=== PATIENT | male | born 1990 | race Caucasian/White ===

== ENCOUNTER 2025-03-01 09:23 | Emergency (ER) | payer OTHER, SELFPAY ==
[2025-03-01 09:36] VITALS: BP 129/82; PULSE 105; RESP 20; TEMP 37.2; O2SAT 99
--- NOTE | 2025-03-01 09:51 | ED.EAR ---
HPI - Ear Problem General Chief complaint: Ear Stated complaint: right ear patient presents to the [facility] accompanied by spouse with complaints of significant right ear pain with bloody drainage that began yesterday. Patient noted some minimal ear pain with nasal congestion and sinus pain that began about 4 days ago. Patient reports using some [id number] lidocaine ear drops yesterday without relief of symptoms. No known sick contacts. As a child had trouble with ears but no problems as an adult. Denies fever, chills, body aches, dizziness, cough, shortness of breath, nausea, vomiting, diarrhea. Related Data Allergies Allergy/AdvReac Type Severity Reaction Status Date / Time No Known Allergies Allergy Verified 03/01/25 09:45 Review of Systems Constitutional: Constitutional: Reports as per HPI, Denies chills, Reports fatigue, Denies fever(s) and Denies weakness Eyes: Eyes: Reports no additional eye complaints ENT: Reports as per HPI, Denies vertigo, Denies dizziness, Reports nasal congestion and Denies sore throat Comments: Sinus pain, nasal drainage, significant right ear pain, drainage and bleeding from right ear Cardiovascular: Cardiovascular: Reports no additional cardiovascular complaints Respiratory: Respiratory: Reports as per HPI, Denies chest congestion, Denies cough, Denies dyspnea and Denies wheezing Gastrointestinal: Gastrointestinal: Reports no additional gastrointestinal complaints Genitourinary: Genitourinary: Reports no additional male genitourinary complaints Musculoskeletal: Musculoskeletal: Reports as per HPI, Denies back pain and Denies myalgias Integumentary/Breasts: Skin/Breast: Reports as per HPI, Denies erythema and Denies rash Neurologic: Reports as per HPI, Denies vertigo, Denies dizziness, Reports headache(s) and Denies weakness Psychiatric: Psychiatric: Reports no additional psychiatric complaints Endocrine: Endocrine: Reports no additional endocrine complaints Hematologic/Lymphatic: Hematologic/Lymphatic: Reports no additional hematologic/lymphatic complaints Allergic/Immunologic: Allergic/Immunologic: Reports no additional allergic/immunologic complaints Exam Const: General: healthy appearing Nutritional Appearance: well nourished Orientation/consciousness: patient oriented x3 Limitations: no limitations Other: uncomfortable, obvious pain HENMT: Head: normal to inspection Ears: external ears abnormal and TM's abnormal bilaterally Face/Nose/Sinus: Normal external nose present, Normal nares present and no nasal discharge noted Face and sinus: normal facial exam and sinuses nontender Mouth: Yes Normal oral and palatal mucosa present, Yes lip normal and Yes moist mucous membranes Throat: posterior oropharynx normal Other: Right: pain with movement of right ear, TM retracted with significant erythema and minimal rupture at 4 o'clock, purulence drainage noted in ear canal. left: no pain with movement of left ear, TM moderate bulging with cloudy yellow fluid, moderate erythema and significant loss of bony landmarks. No rupture noted Neck: Neck: normal visual inspection and lymphadenopathy ( bilateral submandibular and anterior cervical) Other: tenderness with palpation Resp: Effort & Inspection: normal respiratory effort Auscultation: clear to auscultation bilaterally Cardio: Rate: regular rate Rhythm: regular rhythm Skin: General skin exam: normal color Rashes: no rashes Wounds: no wounds Neuro: General: patient oriented x3 and moves all extremities Speech: normal speech Gait exam (Neuro): Normal gait present Psych: Mental Status: mental status grossly normal Affect: normal affect Attitude: cooperative Course Course Level of Care: Express Care Visit Vital Signs Vital signs: Vital Signs Temperature 98.9 F 03/01/25 09:36 Pulse Rate 105 H 03/01/25 09:36 Respiratory Rate 20 03/01/25 09:36 Blood Pressure 129/82 03/01/25 09:36 Pulse Oximetry 99 03/01/25 09:36 Oxygen Delivery Room Air 03/01/25 09:36 Temperature 98.9 F 03/01/25 09:36 Pulse Rate 105 H 03/01/25 09:36 Respiratory Rate 20 03/01/25 09:36 Blood Pressure 129/82 03/01/25 09:36 Pulse Oximetry 99 03/01/25 09:36 Oxygen Delivery Room Air 03/01/25 09:36 Medical Decision Making MDM Narrative Medical decision making narrative: The patient was evaluated by myself in the express care. History is obtained from patient who is an independent historian and physical exam was performed. Available medical records were reviewed at this time. Exam findings show no acute concerns or changes; patient is non-toxic appearing and is in no distress. Patient is appropriate for outpatient treatment and follow-up. I have evaluated and discussed social determinants of health with the patient that could potentially impact subsequent diagnosis and treatment plans. Differential diagnosis and treatment plan were discussed with the patient. Patient agrees with discussion and after shared medical decision making agrees with plan of care. All questions were answered to the patient's satisfaction. Differential Diagnosis Differential Diagnosis: Otitis media, otitis externa, sinusitis, Medical Records Medical records reviewed: Yes I reviewed the external patient's medical records. Vital Signs Vital Signs: Vital Signs Temperature 98.9 F 03/01/25 09:36 Pulse Rate 105 H 03/01/25 09:36 Respiratory Rate 20 03/01/25 09:36 Blood Pressure 129/82 03/01/25 09:36 Pulse Oximetry 99 03/01/25 09:36 Oxygen Delivery Room Air 03/01/25 09:36 Temperature 98.9 F 03/01/25 09:36 Pulse Rate 105 H 03/01/25 09:36 Respiratory Rate 20 03/01/25 09:36 Blood Pressure 129/82 03/01/25 09:36 Pulse Oximetry 99 03/01/25 09:36 Oxygen Delivery Room Air 03/01/25 09:36 Discharge Plan Discharge Clinical Impression: Otitis media of right ear with rupture of tympanic membrane, Acute otitis media with effusion of left ear Patient Disposition: Home Condition: Stable Instructions: Antibiotic Form, Ruptured Eardrum (ED), Ear Infection (ED) Additional Instructions: take the antibiotics until gone. May use probiotics or yogurt daily to help with upset stomach /diarrhea with antibiotic use. May use Tylenol and ibuprofen to help with pain or fever. May use warm compresses to the outside of the ear to help with pain. Can also use Sudafed and Flonase nasal spray to help with symptoms associated with ear infection and help the ears drain. Follow-up with primary care physician if symptoms not improving or worsen. Patient Language: Croatian Prescriptions: New amoxicillin-pot clavulanate 875-125 mg tablet 1 tablet PO Q12H Qty: 20 0RF prednisone 50 mg tablet 50 mg PO DAILY Qty: 7 0RF ofloxacin 0.3 % drops 10 drp RIGHT EAR DAILY 7 Days Qty: 10 0RF Follow-up/Referrals: PHYSICIAN,CLINICAL OFFICE TECHNICIAN [Primary Care Provider, Internal Medicine] Time of Disposition: 09:55
== END 2025-03-01 10:03 | disposition home or self-care (01) ==
PROVIDERS: Emergency Provider Nurse Practitioner Family
DX: H66.91 Otitis media, unspecified, right ear (principal); H72.91 Unspecified perforation of tympanic membrane, right ear; H65.92 Unspecified nonsuppurative otitis media, left ear
CPT/HCPCS: 99203; G0463